=== PATIENT | female | born 2000 | race American Indian/Alaskan Native ===

== ENCOUNTER 2022-01-29 04:53 | Emergency (ER) | payer SELFPAY ==
[2022-01-29 05:04] VITALS: BP 120/70
[2022-01-29] MEDS ORDERED: MORPHINE 4 MG/1 ML INJ IV ONE (08:13)
[2022-01-29] MEDS ORDERED: ONDANSETRON 4 MG/2 ML INJ IV ONE (08:13)
[2022-01-29] MEDS ORDERED: SODIUM CHLORIDE 0.9% 1000 ML 1,000 ML IV ONE ×2 (08:13→12:00)
--- NOTE | 2022-01-29 08:37 | Emergency Department Report ---
ED Abdominal Pain HPI - General Chief Complaint: Abdominal Pain Stated Complaint: ABDOMINAL PAIN PUI?: No Time Seen by Provider: 01/29/22 07:46 Source: EMS Mode of arrival: Stretcher Limitations: No Limitations - History of Present Illness Initial Comments: 21 yo F who present with upper abdominal pain that started after eaten Joll[employer] rice that she prepared yesterday. She says she must have eaten too much of it. She also reports nausea and vomiting x [address] here this morning. She reports her LMP to be 01/09/22. No fever or chills reported or any diarrhea. She is concern for kidney stone even though she denies any history of it. No other modifying or associated factors reported. - Related Data Previous Rx's Medication Instructions Recorded Last Taken Type Docusate Sodium [Colace] 100 mg PO BID PRN 5 Days #10 01/29/22 Unknown Rx capsule NS Ondansetron (Nf) [Zofran TAB] 8 mg PO Q8HR PRN 5 Days #15 tablet 01/29/22 Unknown Rx NS Allergies Allergy/AdvReac Type Severity Reaction Status Date / Time No Known Allergies Allergy Unverified 01/29/22 05:01 ED Review of Systems ROS: Stated complaint: ABDOMINAL PAIN Other details as noted in HPI Comment: All other systems reviewed and negative Gastrointestinal: abdominal pain, nausea, vomiting. denies: diarrhea, constipation ED Past Medical Hx - Past Medical History Previous Medical History?: No - Surgical History Past Surgical History?: Yes Additional Surgical History: x 2 - Social History Smoking Status: Never Smoker Substance Use Type: None - Medications Home Medications: Home Medications Medication Instructions Recorded Confirmed Last Taken Type Docusate Sodium [Colace] 100 mg PO BID PRN 5 Days #10 01/29/22 Unknown Rx capsule NS Ondansetron (Nf) [Zofran TAB] 8 mg PO Q8HR PRN 5 Days #15 tablet 01/29/22 Unknown Rx NS ED Physical Exam - General Limitations: No Limitations General appearance: alert, in no apparent distress - Head Head exam: Present: normal inspection - Eye Eye exam: Present: normal appearance Pupils: Present: normal accommodation - ENT ENT exam: Present: normal exam, normal orophraynx, mucous membranes dry - Neck Neck exam: Present: normal inspection, full ROM. Absent: tenderness - Respiratory Respiratory exam: Present: normal lung sounds bilaterally. Absent: respiratory distress, accessory muscle use - Cardiovascular Cardiovascular Exam: Present: regular rate, normal rhythm, normal heart sounds - GI/Abdominal GI/Abdominal exam: Present: soft, tenderness (RUQ and LUQ tenderness to palpation ), normal bowel sounds. Absent: distended - Extremities Exam Extremities exam: Present: normal inspection, normal capillary refill. Absent: pedal edema - Back Exam Back exam: Absent: tenderness, CVA tenderness (R), CVA tenderness (L) - Neurological Exam Neurological exam: Present: alert, oriented X3 - Psychiatric Psychiatric exam: Present: normal affect, normal mood - Skin Skin exam: Present: warm, normal color ED Course Vital Signs 01/29/22 05:01 Temperature 98.5 F Pulse Rate 70 Respiratory 18 Rate Blood Pressure 120/70 O2 Sat by Pulse 98 Oximetry ED Medical Decision Making - Lab Data Result diagrams: 01/29/22 08:59 01/29/22 08:59 - Radiology Data FINDINGS: LOWER CHEST: No significant abnormality LIVER: No significant abnormality GALLBLADDER/BILIARY TREE: There is cholelithiasis. No evidence of cholecystitis by CT criteria. No biliary dilatation. PANCREAS: No significant abnormality SPLEEN: No significant abnormality ADRENALS: No significant abnormality RIGHT KIDNEY / URETER: No significant abnormality LEFT KIDNEY / URETER: No significant abnormality URINARY BLADDER: No significant abnormality REPRODUCTIVE ORGANS: No significant abnormality STOMACH / BOWEL: Small bowel is normal in caliber. There is moderate colonic stool burden. No evidence of localized bowel inflammation or obstruction. Normal appendix. LYMPH NODES: No significant adenopathy. VASCULATURE: No significant abnormality. OTHER: No free air, free fluid, or focal fluid collection is identified. SKELETAL SYSTEM: No acute osseous findings. IMPRESSION: 1. No acute abnormality identified within the limitations of this noncontrast study. 2. Cholelithiasis. No evidence of cholecystitis by CT criteria. 3. Moderate colonic stool burden, may reflect constipation. No evidence of localized bowel inflammation. - Medical Decision Making Here with abdominal pain--differential could be but not limited to appendicitis, diverticulitis, cholecystitis, cholelithiasis, nephrolithiasis, gastritis, pancreatitis, duodenitis, colitis, irritable bowel syndrome, cystitis, so in order to rule this out we will go ahead and order routine acute abdomen that include CBC, CMP, urinalysis, and CT imaging of the abdomen/pelvic. Started with ivf ns 1L bolus x 1-- and zofran 4 mg IV x 1-- while waiting for the above work up Critical care attestation.: If time is entered above; I have spent that time in minutes in the direct care of this critically ill patient, excluding procedure time. ED Disposition Clinical Impression: Abdominal pain Qualifiers: Abdominal location: unspecified location Qualified Code(s): R10.9 - Unspecified abdominal pain Cholelithiasis Qualifiers: Cholelithiasis location: gallbladder Cholecystitis presence: without cholecystitis Biliary obstruction: without biliary obstruction Qualified Code(s): K80.20 - Calculus of gallbladder without cholecystitis without obstruction Disposition: HOME / SELF CARE / HOMELESS Is pt being admited?: No Does the pt Need Aspirin: No Condition: Stable Instructions: Abdominal Pain (ED), Cholelithiasis, [id number], Abdominal Pain, Adult, [id number], Gallbladder Eating Plan Additional Instructions: Increase your daily fluid to help your hydration and constipation Take your stool softener to help your constipation Increase vegetable in your stool to help your constipation Call and schedule follow-up with your primary doctor in the next 3 to 5 days for progress Please do not hesitate to call or return to emergency room if your symptoms worsen Prescriptions: Docusate Sodium [Colace] 100 mg PO BID PRN 5 Days #10 capsule NS PRN Reason: Constipation Ondansetron (Nf) [Zofran TAB] 8 mg PO Q8HR PRN 5 Days #15 tablet NS PRN Reason: Nausea And Vomiting Time of Disposition: 12:38
--- NOTE | 2022-01-29 09:28 | Cat Scan Report ---
CT ABDOMEN AND PELVIS WITHOUT CONTRAST INDICATION / CLINICAL INFORMATION: Abdominal Pain. TECHNIQUE: Axial CT images were obtained through the abdomen and pelvis without IV contrast. All CT scans at this location are performed using CT dose reduction for ALARA by means of automated exposure control. COMPARISON: None available. FINDINGS: LOWER CHEST: No significant abnormality LIVER: No significant abnormality GALLBLADDER/BILIARY TREE: There is cholelithiasis. No evidence of cholecystitis by CT criteria. No bi liary dilatation. PANCREAS: No significant abnormality SPLEEN: No significant abnormality ADRENALS: No significant abnormality RIGHT KIDNEY / URETER: No significant abnormality LEFT KIDNEY / URETER: No significant abnormality URINARY BLADDER: No significant abnormality REPRODUCTIVE ORGANS: No significant abnormality STOMACH / BOWEL: Small bowel is normal in caliber. There is moderate colonic stool burden. No evidenc e of localized bowel inflammation or obstruction. Normal appendix. LYMPH NODES: No significant adenopathy. VASCULATURE: No significant abnormality. OTHER: No free air, free fluid, or focal fluid collection is identified. SKELETAL SYSTEM: No acute osseous findings. IMPRESSION: 1. No acute abnormality identified within the limitations of this noncontrast study. 2. Cholelithiasis. No evidence of cholecystitis by CT criteria. 3. Moderate colonic stool burden, may reflect constipation. No evidence of localized bowel inflammati on. Signer Name: Sohan Sampson MD Signed: 01/29/2022 9:24 AM Workstation Name: [employer]
[2022-01-29 09:51] LABS: Alanine Aminotransferase 19 units/L (7-56); Albumin 4.2 g/dL (3.9-5); Blood Urea Nitrogen 8 mg/dL (7-17); Calcium 9.4 mg/dL (8.4-10.2); Hemolysis Index 0
[2022-01-29 10:06] LABS: BUN/Creatinine Ratio 11; Bilirubin,Direct < 0.2 mg/dL (0-0.2)
[2022-01-29 10:42] LABS: Basophils % (Auto) 0.4 % (0.0-1.8); Eosinophils % (Auto) 0.2 % (0.0-4.3); Hematocrit 34.7 % (30.3-42.9); Lymphocytes # (Auto) 1.9 K/mm3 (1.2-5.4); Lymphocytes % (Auto) 26.6 % (13.4-35.0); Mean Corpuscular HGB Conc 32 % (30-34); Monocytes # (Auto) 0.3 K/mm3 (0.0-0.8); Monocytes % (Auto) 4.2 % (0.0-7.3); Platelet Count 239 K/mm3 (140-440); Red Blood Count 4.98 M/mm3 (3.65-5.03); Red Cell Distribution Width 16.8 % (13.2-15.2)
[2022-01-29 10:56] LABS: Mean Corpuscular Volume 70 fl (79-97)
[2022-01-29] MEDS ORDERED: ONDANSETRON 4 MG/2 ML INJ IV NR (12:00)
[2022-01-29] MEDS ORDERED: MORPHINE 4 MG/1 ML INJ IV NR (12:00)
[2022-01-29 12:43] LABS: Color,Urine Yellow (Yellow); HCG Qualitative,Urine Negative (Negative)
== END 2022-01-29 12:55 | disposition home or self-care (01) ==
LOC: ED 04:53
DX: K80.20 Calculus of gallbladder without cholecystitis without obstruction (principal); R10.12 Left upper quadrant pain
CPT/HCPCS: 36415; 74176; 80048; 80076; 81001; 81025; 83690; 85025; 96361; 96374; 96375; 99284; J2270; J2405; J7030